=== PATIENT | female | born 1965 | race Caucasian/White ===

== ENCOUNTER 2023-05-26 07:39 | Outpatient (CLI) | payer BC, SELFPAY ==
--- OUTSIDE RECORDS SUMMARY | 2023-05-26 07:42 | XMS_ITS ---
Author Name Paulino Garcia Address [address] [place] [address] Organization [facility] 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 ; Other chronic postprocedural pain G89.28 ; Lumbago with sciatica, right side M54.41 and Other obesity due to excess calories E66.09 IMMUNIZATIONS No Known Immunizations SOCIAL HISTORY Qualifiers Date Never Smoker REASON FOR REFERRAL FUNCTIONAL STATUS PLAN OF CARE Activity Details Follow Up 4 Months Reason: VITAL SIGNS Height 65 in 2019-07-23 Weight 226 lbs 2019-07-23 BMI 37.60 kg/m2 2019-07-23 Blood pressure systolic 137 mm Hg Blood pressure diastolic 79 mm Hg 2019-07 MEDICATIONS Medication Instructions Dosage Frequency Start Date End Date Duration Status fluticasone nasal 50 mcg/inh intranasally once a day 24h 30 day(s) Active escitalopram 5 mg orally once a day 2 tab(s) 24h 30 day(s) Active ibuprofen 200 mg orally every 6 hours 1 tab(s) 6h Active hydroCHLOROthiazide 25 mg orally once a day 1 tab(s) 24h 30 day(s) Active multivitamin Vitamin B Complex orally once a day 1 tab(s) 24h 30 day(s) Active Macrobid macrocrystals-monohydr ate 100 mg orally 2 times a day 1 cap(s) 12h 10 day(s) Active gabapentin 300 mg orally 3 times a day 1 cap(s) 8h 30 day(s) Active buPROPion 150 mg/12 hours orally 2 times a day 1 tab(s) 12h 30 day(s) Active PROCEDURES No Known procedures RESULTS No Results REASON FOR VISIT f/u, chronic pain of lower back radiates down to the Rt Leg, Post replacement RT knee pain , Insomnia, Cannabis Insurance Providers Health Insurance Type Health Plan Insurance Address Health Plan Insurance Phone Health Plan Insurance Name Health Plan Coverage Dates Member ID Patient Relationship to Subscriber Patient Address Patient Phone Patient Name Patient Date of Subscriber ID Subscriber Name Subscriber Date of Group No [employer] Commercial [address] [address] [facility] [address] BC[employer] Commercial self Marya Gross [id number]
--- OUTSIDE RECORDS SUMMARY | 2023-05-26 07:42 | XMS_ITS | Continuity of Care Document ---
Author Name Unknown Organization [facility] Address [address] [place] [address] Phone Care Team Providers Care It Applications Analyst Name Role Phone Lyly RO, PhD, Adan Unavailable Unavai lable Allergies, Adverse Reactions, Alerts Substance Reaction Status Criticality SERTRALINE HCL Active No Informatio n OXYCODONE HCL Active No Information VENLAFAXINE HCL Active No Informati on Medications Medication Instructions Dosage Effective Dates (start - stop) Status Comments TIZANIDINE 4MG TAKE 1 TABLET BY ORAL ROUTE EVERY 6 - 8 HOURS NEEDED NOT TO EXCEED 3 DOSES IN 24 HOURS - Active hydromorphone 2 mg tablet take 1 to 2 tablets by oral route every 4 - 6 hours as needed for postop pain. Fill when insurance allows. - Active CYCLOBENZAPRINE HCL (unknown strength) Not Available - Active MELOXICAM (unknown strength) Not Available - Active KLOR-CON M20 (unknown strength) Not Available - Active MACROBID (unknown strength) Not Available - Active PAMELOR (unknown strength) Not Available - Active HYDROCHLOROTHIAZIDE (unknown strength) Not Available - Active LEXAPRO (unknown strength) Not Available - Active DITROPAN XL (unknown strength) Not Available - Active GABAPENTIN (unknown strength) Not Available - Active WELLBUTRIN SR (unknown strength) Not Available - Active ZOFRAN (unknown strength) Not Available - Active Procedures Procedure Date Office/Outpatient Visit,Est, Mod 2022 Office/Outpatient Visit,Est, Mod 2022 Postop Followup Visit ALIF / OLIF Anterior Lumbar Interbody Fu annamarie PEEK/ Cage/ Implant, For Interbody Fusio n Posterior Instrumentation, Non-segmental Stealth / Stereotactic Navigation, Spina l Allograft, Morcelized, and/or BMP Office/Outpatient Visit,Est, High Office/Outpatient Visit,Est, Mod 2020 Advance Directives Directive Yes / No Effective Date File Name No Information Encounters Encounter Description Practice Location Reason(s) For Visit Diagnoses Date Provider Providers Copied on Encounter Office/Outpat ient Visit,Est, Mod [facility], [address], [place], [id number], [place] tel:[phone] [facility] Arthrodesis status Lyly Arellano. [facility], [address] [facility] [place], [address], [place]. tel:[phone] Referring Provider: Kannan Campbell [address], [address]. tel:[phone] Office/Outpat ient Visit,Est, Mod [facility], [address], [place], [id number], [place] tel:[phone] [facility] Arthrodesis status Lyly Arellano. [facility], [address] [facility] [place], [address], [place]. tel:[phone] Referring Provider: Kannan Campbell [address], [address]. tel:[phone] [facility], [address], [place], [id number], [place] tel:[phone] [facility] Arthrodesis status Lyly Arellano. [facility], [address], [place], [address], [place]. tel:[phone] Referring Provider: Kannan Campbell [address], [place], [address]. tel:[phone] [facility], [address], [place], [place], [id number], [place] tel:[phone] [facility] No Information Sarthak Goldberg. [facility], [address], [place], [id number], [place]. tel:[phone] [facility], [address], [place], [id number], [place] tel:[phone] [facility] No Information Lyly Arellano. [facility], [address], [place], [address], [place]. tel:[phone] [facility], [address], [place], [address], [place] tel:[phone] [facility] No Information Lyly Arellano. [facility], [address], [place], [address], [place]. tel:[phone] Referring Provider: Kannan Campbell, [address], [address]. tel:[phone] Office/Outpat ient Visit,Est, High [facility], [address], [place], [id number], [place] tel:[phone] [facility] Spondylolisth esis, lumbar region Lyly Arellano. [facility], [address], [place], [address], [place]. tel:[phone] Referring Provider: Kannan Campbell, [address], [address]. tel:[phone] Office/Outpat ient Visit,Est, Mod [facility], [address], [place], [address], [place] tel:[phone] [facility] [place] Spondylolisth esis, lumbar region Sarthak Yusuf. [facility], [address], [place], [place], [id number], [place]. tel:[phone] Referring Provider: Kannan Campbell, [facility] [address] [place], [address]. tel:[phone] [facility], [address], [place], [place], [id number], [place] tel:[phone] [facility] [place] Low back pain Lyly Adan. [facility], [address], [place], [address], [place]. tel:[phone] Family History Family Member Type Diagnosis Age At Onset No Information Payers Payer name Insurance type Covered constitution party ID Mikitiburcio dee deemonster(s) [facility] [id number] [facility] [id number] Social History Type Description Quantity Date Captured Comments Alcohol Use Details Unknown Caffeine Use Details Unknown Tobacco Use Status Current non-smoker Smoking Status Never smoker Non-Smoking Tobacco Use Details : No Details Available : No Details Available Sex Female Vital Signs Date / Time: Height Weight BMI Pulse Rate Blood Pressure Temperature Respiratory Rate Body Surface Area Head Circumference Head Circ. Percentile Wt./Sina. Percentile BMI percentile Pulse Ox Inhaled Ox 10:17 AM 66.00 in 108.862 kg (240.00 lbs) 38.7 4 kg/m eter (2) Chief Complaint And Reason For Visit No Information Reason For Referral Reason For Referral No Information Plan Of Treatment Date Type Action Status No Information History Of Present Illness Encounter Date Complaint History Of Prese nt Illness No Information Functional Status Date Functional Assessmen t No Information Instructions Date Instruction Additional Infor mation No Information Assessments Type Assessment Date No Information Patient Care Teams Name Effective Dates (start - stop) Status Members No Information
--- NOTE | 2023-05-26 09:00 | W.ANESCHARGE ---
Anesthesia Charges Start Date/Time Anesthesia Start Date: 05/26/23 Anesthesia Start Time: 08:40 Stop Date/Time Anesthesia Stop Date: 05/26/23 Anesthesia Stop Time: 08:59
--- NOTE | 2023-05-26 09:02 | W.ANESCHARGE ---
Anesthesia Charges Start Date/Time Anesthesia Start Date: 05/26/23 Anesthesia Start Time: 08:40 Stop Date/Time Anesthesia Stop Date: 05/26/23 Anesthesia Stop Time: 08:59
== END 2023-05-26 07:40 | disposition home or self-care (01) ==
LOC: OP CLINIC 07:39
PROVIDERS: PCP Family Medicine; Visit Provider Internal Medicine Gastroenterology
DX: Z12.11 Encounter for screening for malignant neoplasm of colon (principal); Z86.010 Personal history of colon polyps
CPT/HCPCS: 00812; 45378; J2405; J2704